=== PATIENT | female | born 1950 | race Caucasian/White ===

== ENCOUNTER 2023-08-14 13:41 | Inpatient (IN) | payer MEDICARE, OTHER, SELFPAY ==
[2023-08-14] VITALS (9 sets, daily range): BP systolic 118–145; BP diastolic 53–78; BMI 27.8; BMI 27.1
--- NOTE | 2023-08-14 10:29 | ED.GENMED ---
History of Present Illness
General
Chief Complaint: Cold/Flu/URI Symptoms
Time Seen by Provider: 08/14/23 10:20
Travel History
Have you had any contact with someone who has COVID-19?: No
Do you have any symptoms of coronavirus? Fever > 100 degrees, chills, cough, shortness of breath, sore throat, loss of taste or smell, muscle aches, or headache?: No
History of Present Illness
History of Present Illness:
HPI: Patient presents due to general unwell feeling including nausea, some vomiting, poor p.o. intake, flu positive yesterday (COVID-negative), general weakness, headache. Of note her is here admitted with flu/pneumonia. She states her
primary put her on Tamiflu but she could not tolerate taking this medication.
EXAM:
GENERAL: The patient appears generally weak
HEENT: Moist oral mucosa
CARDIOVASCULAR: No murmurs, normal heart rate and rhythm, No chest wall tenderness
PULMONARY: No respiratory distress, breath sounds are somewhat coarse
ABDOMEN: Soft with no peritoneal signs, no tenderness
NEUROLOGIC: Excellent strength all extremities, no coordination deficits
PSYCHIATRIC: Appropriate mental status, normal insight and judgement
EXTREMITIES: Nontender, no edema, moves all extremities equally
SKIN: No rash, no lesions
ED COURSE:
10:30 AM: I initially evaluated patient
NUMBER AND COMPLEXITY OF PROBLEMS ADDRESSED AT THE ENCOUNTER
� Chronic conditions affecting care: High blood pressure, former smoker, asthma, melanoma
� Acute Exacerbation and/or Progression of Chronic Illness: This is an acute problem
� Differential Diagnosis includes: Influenza, JUANCHO, dehydration, sepsis unlikely based on vital signs
AMOUNT AND/OR COMPLEXITY OF DATA TO BE REVIEWED AND ANALYZED
� I performed an independent evaluation of and my interpretation is:
EKG:
CT:
X-rays: Personally reviewed x-ray, and agree with radiologist interpretation of the possibly of disease at the [facility]
Laboratory Studies: White count slightly high at 12.4, chemistries relatively unremarkable
Other:
� Review of other/old records: The patient had a normal nuclear stress test in 2021
� Clinical information was obtained by an independent historian: None needed
� Prescriptions/Medications Considered but not given:
� Further testing considered but not performed:
RISK OF COMPLICATIONS AND/OR MORBIDITY OR MORTALITY OF PATIENT MANAGEMENT
� Social determinants of health affecting care: Lives at home, currently hospitalized for similar episode.
� Discussion with other providers: Hospitalist for admission 11:45 AM.
� Escalation of care including admission/observation vs risk of discharge considered: Chest x-ray suggest the possibility of pneumonia and white count is slightly high and she does have a worsening cough. She was given fluid,
Tylenol, Zofran. After neb, room air sat was about 93%. She does not feel comfortable going home and there was some concern for pneumonia. Will give IV antibiotics that she feels that she cannot tolerate p.o.
Past History
Past History
ED Past Medical History: Asthma, Cancer (Skin), HTN and Hypercholesterolemia
ED Past Surgical History: Orthopedic and Other (melanoma removed)
Social History
Tobacco: Non-smoker
Alcohol: Daily
Personal:
Living: with family
Employment: Employed
Phy Exam
Physical Exam
Physical Exam:
See HPI
Course
Orders/Labs/Results
Orders:
Orders
08/14/23 10:28
0.9% Sodium Chloride 1000 ml [Nss] 1,000 ml IV BOLUS
Acetaminophen [Tylenol] 1,000 mg PO NOW STA
Ipratropium/Albuterol Sulfate [Duoneb] 3 ml INH R NOW ONE
Ondansetron Injectable [Zofran] 4 mg IV NOW STA
08/14/23 10:29
CR Chest - 2 Views Urgent
Comment:
Reason For Exam: +flu, -COVID, sob cough
08/14/23 10:45
Complete Blood Count/With Diff Urgent
Comprehensive Metabolic Panel Urgent
08/14/23 11:40
Azithromycin 500 mg/250 ml [Zithromax Infusion] 500 mg in 250 ml IV NOW
CefTRIAXone [Rocephin] 1,000 mg IV NOW STA
Abnormal Lab Results
08/14/23
10:45
WBC 12.4 H 10^3/uL
(4.8-10.8)
MCH 32.0 H pg
(27.0-31.0)
MPV 10.5 H fL
(7.4-10.4)
Abs Immat Gran (auto) 0.1 H 10^3/uL
(0-0.05)
Absolute Neuts (auto) 10.8 H 10^3/uL
(1.4-6.5)
Absolute Lymphs (auto) 0.7 L 10^3/uL
(1.2-3.4)
Absolute Monos (auto) 0.9 H 10^3/uL
(0.1-0.6)
Neutrophils % 87.0 H %
(42.2-75.2)
Lymphocytes % 5.4 L %
(20.5-51.1)
Sodium 134 L mmol/L
(135-145)
Glucose 152 H mg/dl
(70-99)
AST 47 H U/L
(14-36)
ALT 47 H U/L
(0-35)
08/14/23 10:45
08/14/23 10:45
Vital Signs
Initial and Last Documented VS:
Initial Vital Signs
Temp Pulse Resp BP Pulse Ox
97.6 F 98 18 130/74 95
08/14/23 09:36 08/14/23 09:36 08/14/23 09:36 08/14/23 09:36 08/14/23 09:36
Last Documented Vital Signs
Temp Pulse Resp BP Pulse Ox
97.6 F 89 17 118/60 97
08/14/23 09:36 08/14/23 13:00 08/14/23 13:00 08/14/23 13:00 08/14/23 10:33
*Critical Care Note
Total Time (30-74mins, 75-104mins- exclusive of procedures): Not Applicable
ED Attending Note
-
Portions of this chart may have been created with voice recognition software.� Occasional wrong word or��sound alike� substitutions may have occurred due to the inherent limitations of voice recognition software.
Discharge Plan
Departure
Patient Disposition: Admit
Date of Disposition: 08/14/23
Time of Disposition: 12:48
Presentation/result/management discussed w/ accepting MD/DO: Hospitalist
Discharge Problem:
Pneumonia, Influenza
Prescriptions:
No Action
cholecalciferol (vitamin D3) [Vitamin D3] 1,000 UNIT capsule
1,000 unit PO DAILY
duloxetine 60 MG capsule,delayed release(DR/EC)
60 mg PO DAILY
fluticasone propion-salmeterol 250-50 mcg/dose blister with device
1 inh INHALATION R BID
amlodipine 10 mg tablet
10 mg PO DAILY
metoprolol succinate 25 mg tablet extended release 24 hr
25 mg PO DAILY
albuterol sulfate 90 mcg/actuation HFA aerosol inhaler
2 puff INHALATION R Q4 PRN (Reason: sob/wheezing)
rosuvastatin 5 mg tablet
5 mg PO DAILY
Referrals:
Jessica Molina PA [Family Provider] -
Interventions
Interventions:
*Risk Screen - Suicide Last Done: 08/14/23 09:36
*General Assessment Last Done: 08/14/23 09:36
*Neglect/Abuse Screening Last Done: 08/14/23 09:36
ED- Fall Risk Assessment Last Done: 08/14/23 10:33
*ED COVID-19 Vaccine History Last Done: 08/14/23 09:36
ED- Pulmonary Assessment Last Done: 08/14/23 10:33
[2023-08-14] MEDS: NSS 1000 IV ×2 (10:44→15:32)
[2023-08-14] MEDS: DUONEB 3 ML INH (10:44)
[2023-08-14] MEDS: TYLENOL 1000 MG PO (10:44)
[2023-08-14] MEDS: ZOFRAN 4 MG IV (10:44)
[2023-08-14 10:55] LABS: % Basophils 0.2 % (0-2); % Immature Granulocytes 0.5 % (0-0.5); % Lymphocytes 5.4 % (20.5-51.1); % Monocytes 6.9 % (1.7-9.3); Absolute Immature Granulocytes 0.1 10^3/uL (0-0.05); Absolute Lymphocytes 0.7 10^3/uL (1.2-3.4); Absolute Monocytes 0.9 10^3/uL (0.1-0.6); Absolute Neutrophils 10.8 10^3/uL (1.4-6.5); Hematocrit 44.2 % (37.0-47.0); Hemoglobin 15.3 g/dL (12.0-16.0); Mean Corp Hgb Conc. 34.6 g/dL (33.0-37.0); Mean Corpuscular Volume 92.5 fL (81.0-99.0); Mean Platelet Volume 10.5 fL (7.4-10.4); Nucleated Red Blood Cells % 0 %; Platelet Count 187 10^3/uL (130-400); Red Blood Cell Count 4.78 10^6/uL (4.20-5.40); White Blood Cell Count 12.4 10^3/uL (4.8-10.8)
[2023-08-14 11:09] LABS: Carbon Dioxide 27 mmol/L (22-30)
[2023-08-14 11:24] LABS: ALT (SGPT) 47 U/L (0-35); AST (SGOT) 47 U/L (14-36); Albumin 4.3 g/dl (3.5-5.0); Alkaline Phosphatase 77 U/L (38-126); Blood Urea Nitrogen 8 mg/dl (7-17); Calcium 9.2 mg/dl (8.4-10.2); Chloride 98 mmol/L (98-107); Estimated Creatinine Clearance 62 ml/min; Glucose 152 mg/dl (70-99); Potassium 3.6 mmol/L (3.5-5.1); Sodium 134 mmol/L (135-145); Total Bilirubin 1.1 mg/dl (0.2-1.3); Total Protein 6.8 g/dl (6.3-8.2); eGFR > 60.00
[2023-08-14] MEDS: ZITHROMAX INFUSION 250 IV (11:46)
[2023-08-14] MEDS: ROCEPHIN 1000 MG IV (11:46)
--- NOTE | 2023-08-14 13:25 | HPS.HSE ---
Family Physician
-
Family Physician: Jessica Molina
Chief Complaint
-
Cough, fever, nausea and vomiting
History of Present Illness
Patient is 72 years old female with history of asthma, hypertension who developed upper respiratory tract symptoms including congestion, productive cough, subjective shortness of breath, nausea and vomiting for the last 2 days. Patient has been
tested influenza positive COVID-19 negative at primary physician office day prior to visit to ED. She was prescribed Tamiflu. Given persistent symptoms including nausea and vomiting patient could not keep any medications and oral intake. She
presents to the emergency room.
While in the emergency room patient has afebrile, with stable respiratory status with no evidence of distress, hemodynamically stable.
Additional workup revealed mild elevated white count. Chest x-ray with lingular infiltrate.
Medical History
Past Medical History
Past Medical History: Reports Asthma, HTN and Hypercholesterolemia
Past Surgical History: Reports Orthopedic
Social History
Tobacco: Non-smoker
Alcohol: None
Drug: None
Living: With Family
Family History
Family History: Not pertinent
Allergies / Home Medications
Allergies reflects when Allergies were last updated in [facility].
Home Medications with original date entered in [facility]
Allergy/Medication List:
Allergies
Allergy/AdvReac Type Severity Reaction Status Date / Time
seasonal Allergy Unknown Uncoded 08/14/23 09:36
triamcinolone Allergy Unknown Uncoded 08/14/23 09:36
Home Medications
cholecalciferol (vitamin D3) 25 mcg (1,000 unit) capsule (Vitamin D3) 1,000 unit PO DAILY 12/23/17
duloxetine 60 mg capsule,delayed release 60 mg PO DAILY 12/23/17
albuterol sulfate 90 mcg/actuation aerosol inhaler 2 puff inhalation R Q4 PRN sob/wheezing 08/14/23
amlodipine 10 mg tablet 10 mg PO DAILY 08/14/23
fluticasone 250 mcg-salmeterol 50 mcg/dose blistr powdr for inhalation 1 inh inhalation R BID 08/14/23
metoprolol succinate 25 mg tablet,extended release 24 hr 25 mg PO DAILY 08/14/23
rosuvastatin 5 mg tablet 5 mg PO DAILY 08/14/23
Review of Systems
-
A 12 point ROS was completed and negative except as noted: Yes
Respiratory: Reports See HPI
Abdomen/GI: Reports See HPI
Physical Exam
Vital Signs
Vital Signs
Temp Pulse Resp BP Pulse Ox
97.6 F 89 17 118/60 97
08/14/23 09:36 08/14/23 13:00 08/14/23 13:00 08/14/23 13:00 08/14/23 10:33
Physical Exam
General: Well Developed, Well Nourished and No Apparent Distress
HEENT: NormoCephalic, Moist mucous membranes and Atraumatic
Respiratory: Wheezes and Rhonchi
Cardiac: S1/S2 and Regular Rhythm; No Murmur or Rub
GI: Soft, Non Tender, Non Distended and Normal Bowel Sounds; No Organomegaly
Rectal: Deferred by Provider
Musculoskeletal: No Clubbing, No Cyanosis and No Edema
Skin: No Rash
Neuro: Nonfocal/grossly intact
Laboratory Results
-
08/14/23 10:45
08/14/23 10:45
Laboratory Results
Total Bilirubin 1.1 mg/dl (0.2-1.3) 08/14/23 10:45
AST 47 U/L (14-36) H 08/14/23 10:45
ALT 47 U/L (0-35) H 08/14/23 10:45
Alkaline Phosphatase 77 U/L (38-126) 08/14/23 10:45
Impression/Plan
-
IMPRESSION:
Influenza positive
Lingular pneumonia, community-acquired.
Persistent nausea and vomiting inability to keep oral intake.
Conditions prior to admission:
Essential hypertension
Dyslipidemia
Asthma mild intermittent.
PLAN:
Influenza positive
Pneumonia with lingular infiltrate in the settings of flu.
Mild intermittent asthma
Persistent upper respiratory tract symptoms, although stable respiratory status with no evidence of hypoxia.
Persistent nausea and vomiting secondary to above inability to keep oral intake including medications.
Admitted.
Start antibiotics ceftriaxone/Zithromax pending cultures
Tamiflu.
Short acting inhaled bronchodilators
Advair.
Antiemetics
IV hydration
Essential hypertension
Continue amlodipine and Toprol.
Dyslipidemia on statin.
Full code
DVT prophylaxis heparin
[2023-08-14] MEDS: COMPAZINE 5 MG IV (16:04)
[2023-08-14] MEDS: TOPROL XL 25 MG PO (17:35)
[2023-08-14] MEDS: NORVASC 10 MG PO (17:35)
--- NOTE | 2023-08-14 18:14 | PTCARENOTE ---
Pt admitted to room 327. AAO x 3, able to make needs known, denies pain and discomfort and SOB. VSS. Pt c/o nausea, PRN Compazine given with relief. During alcohol screening, pt's answer prompted ETOH protocol, Dr. Carroll notified, awaiting
orders. MSAS initiated.
[2023-08-14] MEDS: ADVAIR HFA 115/21 MCG INHALER 2 PUFF INH (20:18)
[2023-08-14] MEDS: TAMIFLU 75 MG PO (20:41)
[2023-08-14] MEDS: MUCINEX 600 MG PO (20:41)
[2023-08-14] MEDS: HEPARIN 5000 UNITS SC (20:41)
[2023-08-15] MEDS: NSS 1000 IV (01:15)
[2023-08-15] MEDS: DUONEB 3 ML INH ×5 (04:40→20:08)
[2023-08-15 06:00] VITALS: BMI 27.2
[2023-08-15] MEDS: CRESTOR 5 MG PO (08:04)
[2023-08-15] MEDS: CYMBALTA DELAYED RELEASE 60 MG PO (08:04)
[2023-08-15] MEDS: MUCINEX 600 MG PO ×2 (08:04→19:59)
[2023-08-15] MEDS: VITAMIN D3 (cholecalciferol) 25 MCG PO (08:04)
[2023-08-15] MEDS: TAMIFLU 75 MG PO ×2 (08:04→19:59)
[2023-08-15] MEDS: NORVASC 10 MG PO (08:04)
[2023-08-15] MEDS: TOPROL XL 25 MG PO (08:04)
[2023-08-15] MEDS: HEPARIN 5000 UNITS SC ×2 (08:05→19:58)
[2023-08-15] MEDS: ADVAIR HFA 115/21 MCG INHALER 2 PUFF INH ×2 (08:09→20:08)
[2023-08-15 08:21] VITALS: BP 140/72
[2023-08-15 08:50] LABS: Hematocrit 38.7 % (37.0-47.0); Hemoglobin 13.4 g/dL (12.0-16.0); Mean Corp Hgb Conc. 34.6 g/dL (33.0-37.0); Mean Corpuscular Volume 92.4 fL (81.0-99.0); Red Blood Cell Count 4.19 10^6/uL (4.20-5.40); Red Cell Dist. Width 12.3 % (11.5-14.5); White Blood Cell Count 10.4 10^3/uL (4.8-10.8)
[2023-08-15 08:58] LABS: Blood Urea Nitrogen 7 mg/dl (7-17); Calcium 8.4 mg/dl (8.4-10.2); Carbon Dioxide 24 mmol/L (22-30); Chloride 107 mmol/L (98-107); Estimated Creatinine Clearance 70 ml/min; Glucose 98 mg/dl (70-99); Potassium 3.3 mmol/L (3.5-5.1); Sodium 139 mmol/L (135-145); eGFR > 60.00
[2023-08-15] MEDS: ROCEPHIN 1000 MG IV (09:10)
[2023-08-15] MEDS: STERILE WATER FOR INJECTION 10 ML IV (09:10)
--- NOTE | 2023-08-15 10:07 | W.PN.HOSP.TC ---
Today's Communication/Plan
-
see outlined plan
Assessment / Plan
Assessment / Plan
Assessment:
Influenza infection
Community acquire lingular PNA superinfection
Hx of intermittent asthma
- continue Rocephin, Azithro day 2
- continue Tamiflu
- add PO prednisone
- scheduled/prn nebs
N/V from acute illness
- improving, prn anti-emetics
- cap IVF after current bag
Essential HTN
- continue BB/CCB
HLD - statin
HX of ETOH use - 3-4 drinks daily
- MSAS protocol added
DVT Ppx: SC Heparin
Code: Full
Anticipated Discharge: 24 - 48 hours
Subjective/Interval History
-
Date of Service: August 15, 2023
reports SOB with some wheezing which is causing chest discomfort but no specific pain,
remains on RA
Objective Data
-
Labs:
Laboratory Results
08/15/23
08:38
WBC 10.4
Hgb 13.4
Hct 38.7
Plt Count Pending
Sodium 139
Potassium 3.3 L
Chloride 107
Carbon Dioxide 24
BUN 7
Creatinine 0.7
Glucose 98
Calcium 8.4
Vital Signs:
Vital Signs
Temp Pulse Resp BP Pulse Ox
98.5 F 88 22 140/72 93
08/15/23 08:21 08/15/23 08:21 08/15/23 08:21 08/15/23 08:21 08/15/23 08:21
I&O
08/14/23 08/15/23 08/16/23
06:59 06:59 06:59
Intake Total 1919
Balance 1919
Physical Exam
-
General: No Apparent Distress
HEENT: Normocephalic and Atraumatic
Respiratory: Wheezes (mild); Negative Rales or Rhonchi
Cardiac: Regular Rhythm and S1/S2
GI: Soft
Musculoskeletal: No Edema
Neuro: AO x 3
Hematologic / Lymphatic: No Lymphadenopathy
Psych: Calm
Data Reviewed
-
Total Time Spent with Patient (in minutes): 42
Labs: Labs Reviewed by me
[2023-08-15 10:21] LABS: Mean Platelet Volume 10.7 fL (7.4-10.4); Platelet Count 147 10^3/uL (130-400)
[2023-08-15 11:13] VITALS: BP 137/50; PULSE 87; O2SAT 95
[2023-08-15] MEDS: THIAMINE INJECTION 200 MG IV ×2 (11:49→21:45)
[2023-08-15] MEDS: KCL 40 MEQ PO (11:49)
[2023-08-15] MEDS: DELTASONE 40 MG PO (11:49)
[2023-08-15] MEDS: ZITHROMAX INFUSION 250 IV (11:50)
[2023-08-15] MEDS: COMPAZINE 5 MG IV (12:05)
[2023-08-15 14:51] VITALS: BP 136/70
[2023-08-15] MEDS: THIAMINE INJECTION IV (20:16)
[2023-08-15] MEDS: TYLENOL 650 MG PO (20:33)
[2023-08-15 23:25] VITALS: BP 142/70
[2023-08-15] MEDS: ATIVAN 1 MG PO (23:33)
[2023-08-16 07:25] VITALS: BP 146/75
[2023-08-16 07:50] LABS: Hematocrit 38.3 % (37.0-47.0); Hemoglobin 13.5 g/dL (12.0-16.0); Mean Corp Hgb Conc. 35.2 g/dL (33.0-37.0); Mean Corpuscular Hgb 31.8 pg (27.0-31.0); Mean Corpuscular Volume 90.1 fL (81.0-99.0); Mean Platelet Volume 10.8 fL (7.4-10.4); Platelet Count 156 10^3/uL (130-400); Red Blood Cell Count 4.25 10^6/uL (4.20-5.40); Red Cell Dist. Width 11.9 % (11.5-14.5); White Blood Cell Count 7.5 10^3/uL (4.8-10.8)
[2023-08-16] MEDS: DUONEB 3 ML INH ×2 (07:54→19:59)
[2023-08-16] MEDS: ADVAIR HFA 115/21 MCG INHALER 2 PUFF INH ×2 (07:54→19:53)
[2023-08-16] MEDS: CRESTOR 5 MG PO (08:14)
[2023-08-16] MEDS: CYMBALTA DELAYED RELEASE 60 MG PO (08:14)
[2023-08-16] MEDS: VITAMIN D3 (cholecalciferol) 25 MCG PO (08:14)
[2023-08-16] MEDS: FOLVITE 1 MG PO (08:14)
[2023-08-16] MEDS: TAMIFLU 75 MG PO ×2 (08:14→22:21)
[2023-08-16] MEDS: DELTASONE 40 MG PO (08:14)
[2023-08-16] MEDS: TOPROL XL 25 MG PO (08:14)
[2023-08-16] MEDS: NORVASC 10 MG PO (08:14)
[2023-08-16] MEDS: MUCINEX 600 MG PO ×2 (08:14→22:21)
[2023-08-16] MEDS: HEPARIN 5000 UNITS SC ×2 (08:15→22:20)
[2023-08-16] MEDS: THIAMINE INJECTION 200 MG IV ×2 (08:16→22:25)
[2023-08-16 08:33] LABS: ALT (SGPT) 27 U/L (0-35); AST (SGOT) 21 U/L (14-36); Albumin 3.4 g/dl (3.5-5.0); Alkaline Phosphatase 67 U/L (38-126); Blood Urea Nitrogen 8 mg/dl (7-17); Calcium 9.5 mg/dl (8.4-10.2); Carbon Dioxide 25 mmol/L (22-30); Chloride 105 mmol/L (98-107); Estimated Creatinine Clearance 82 ml/min; Glucose 114 mg/dl (70-99); Magnesium 2.1 mg/dl (1.6-2.3); Phosphorus 3.2 mg/dl (2.5-4.5); Potassium 3.5 mmol/L (3.5-5.1); Sodium 140 mmol/L (135-145); Total Bilirubin 0.6 mg/dl (0.2-1.3); Total Protein 5.8 g/dl (6.3-8.2); eGFR > 60.00
[2023-08-16] MEDS: STERILE WATER FOR INJECTION 10 ML IV (09:06)
[2023-08-16] MEDS: ROCEPHIN 1000 MG IV (09:06)
[2023-08-16 11:46] VITALS: BP 154/78; BP 157/90; PULSE 103; PULSE 112; O2SAT 95
[2023-08-16] MEDS: ZITHROMAX INFUSION 250 IV (11:46)
--- NOTE | 2023-08-16 12:07 | W.PN.HOSP.TC ---
Today's Communication/Plan
-
continue current tx, make nebs prn only
probiotic
psych eval
continue MSAS protocol
Assessment / Plan
Assessment / Plan
Assessment:
Influenza infection
Community acquire lingular PNA superinfection
Hx of intermittent asthma
- continue Rocephin, Azithro day 3/
- continue Tamiflu, day 3/5
- continue PO prednisone, day 2/5
- prn nebs (DC scheduled)
N/V from acute illness
- improving, prn anti-emetics
- add probiotic for loose stools associated with Abx
ETOH abuse (4-5 shots a day) with active WD
- MSAS protocol
- she reports her drinking stems for recent life trauma/stressors including of daughter from OD 4 years ago
- agreeable to psych eval; consulted placed
Essential HTN
- continue BB/CCB
HLD - statin
DVT Ppx: SC Heparin
Code: Full
Anticipated Discharge: 24 - 48 hours
Subjective/Interval History
-
Date of Service: August 16, 2023
overnight scored higher on MSAS so given IV ativan
this AM, reports breathing improved, SOB improved
some loose stools she feels from Abx
Objective Data
-
Labs:
Laboratory Results
08/16/23
07:27
WBC 7.5
Hgb 13.5
Hct 38.3
Plt Count 156
Sodium 140
Potassium 3.5
Chloride 105
Carbon Dioxide 25
BUN 8
Creatinine 0.5 L
Glucose 114 H
Calcium 9.5
Total Bilirubin 0.6
AST 21
ALT 27
Alkaline Phosphatase 67
Vital Signs:
Vital Signs
Temp Pulse Resp BP Pulse Ox
97.9 F 71 16 146/75 99
08/16/23 07:25 08/16/23 07:58 08/16/23 07:58 08/16/23 07:25 08/16/23 07:58
I&O
08/15/23 08/16/23 08/17/23
06:59 06:59 06:59
Intake Total 1919 980 / 980
Balance 1919 980 / 980
Physical Exam
-
General: No Apparent Distress
HEENT: Normocephalic and Atraumatic
Respiratory: Negative Wheezes or Rales
Cardiac: Regular Rhythm and S1/S2
GI: Soft
Neuro: AO x 3
Psych: Calm
Data Reviewed
-
Total Time Spent with Patient (in minutes): 45
Labs: Labs Reviewed by me
[2023-08-16 12:14] VITALS: BMI 27.2
[2023-08-16] MEDS: VISBIOME 1 CAP PO (12:43)
[2023-08-16] MEDS: COMPAZINE 5 MG IV ×2 (12:43→22:26)
--- NOTE | 2023-08-16 15:03 | CON.MD ---
Consultation - Medical
-
Called to see this 79 yr old white female who was admitted her for flu/pneumonia. She requested to talk to a psychiatrist because 'I've been drinking too much' and 'I don't have any energy or motivation.' She says that her alcohol
consumption gradually increased over the last 4 years. Her current intake is 5 vodka/tonics a night. 'I shut myself in my bedroom and I start watching my shows and drinking.' She denies blackouts, headaches, falling down. She does c/o more and
more difficulty reading or focusing on things during the day. For example she works as an school health assistant at a school, and realizes she doesn't pay attention very well to what is going on with the students. She thinks that it might be ADHD,
but when I pointed out the likely correlation of her cognitive change with her alcohol intake she seemed to agree. She says her goal is to stop drinking alcohol completely.
She does not feel depressed, says she often feels anxious. She readily admits she is unhappy with her life right now. 'My is retired and all he does it sit around and do nothing, while I want to go out and travel.' Right now her
is in [facility] too for a cardiac procedure.
No change in her appetite or sleep.
For years she has been maintained on Cymbalta 60 mg. Says that first she was put on Prozac but it didn't help.
MSE- Alert white female, sleeping when I entered the room but woke up quickly. Cooperative and pleasant.
No suicidal ideation, no thoughts of harming others. No psychotic symptoms. Memory grossly intact.
Insight and judgment good.
A/P- Alcohol dependence; on MSAS protocol for withdrawal
Influenza
Depression by hx- on Cymbalta
Pt motivated to start psychotherapy and Alcohol support group after discharge.
She is interested in [facility] as her granddaughter goes there for psychiatric services.
We will follow with you.
[2023-08-16 15:10] VITALS: BP 152/83
--- NOTE | 2023-08-16 16:07 | CM ---
clinical statistics manager reviewed patient's chart and spoke with patient by phone, patient is on isolation. Patient lives with spouse in a 1 story home, with 13 steps to enter, patient independent with adl's and ambulation, no dme, patient has a prescription
plan and patient uses [facility]. Patient is agreeable to psychotherapy at [facility] outpatient.
Plan; To follow up with appointment for patient at [facility] or[facility]and [facility]
PCP: Jessica Molina
[2023-08-16 19:50] VITALS: BP 147/74
[2023-08-16 23:15] VITALS: BP 162/83
[2023-08-17] MEDS: ATIVAN 0.5 MG IV (00:36)
[2023-08-17] MEDS: NSS (PRESERVATIVE FREE) 0.25 ML IV (00:46)
[2023-08-17 05:28] VITALS: BMI 26.8
[2023-08-17 06:09] LABS: Mean Corp Hgb Conc. 36.1 g/dL (33.0-37.0); Mean Corpuscular Hgb 32.2 pg (27.0-31.0); Mean Corpuscular Volume 89.1 fL (81.0-99.0); Mean Platelet Volume 10.8 fL (7.4-10.4); Platelet Count 192 10^3/uL (130-400); Red Blood Cell Count 4.04 10^6/uL (4.20-5.40); Red Cell Dist. Width 11.7 % (11.5-14.5); White Blood Cell Count 8.2 10^3/uL (4.8-10.8)
[2023-08-17 06:32] LABS: ALT (SGPT) 25 U/L (0-35); AST (SGOT) 21 U/L (14-36); Albumin 3.4 g/dl (3.5-5.0); Alkaline Phosphatase 64 U/L (38-126); Blood Urea Nitrogen 14 mg/dl (7-17); Calcium 9.5 mg/dl (8.4-10.2); Carbon Dioxide 23 mmol/L (22-30); Chloride 104 mmol/L (98-107); Estimated Creatinine Clearance 81 ml/min; Glucose 101 mg/dl (70-99); Potassium 3.5 mmol/L (3.5-5.1); Sodium 138 mmol/L (135-145); Total Bilirubin 0.7 mg/dl (0.2-1.3); Total Protein 5.9 g/dl (6.3-8.2); eGFR > 60.00
[2023-08-17 07:00] VITALS: BP 153/74
[2023-08-17] MEDS: THIAMINE INJECTION 200 MG IV (08:21)
[2023-08-17] MEDS: HEPARIN 5000 UNITS SC (08:22)
[2023-08-17] MEDS: MUCINEX 600 MG PO (08:23)
[2023-08-17] MEDS: CYMBALTA DELAYED RELEASE 60 MG PO (08:24)
[2023-08-17] MEDS: VITAMIN D3 (cholecalciferol) 25 MCG PO (08:24)
[2023-08-17] MEDS: NORVASC 10 MG PO (08:24)
[2023-08-17] MEDS: TAMIFLU 75 MG PO (08:24)
[2023-08-17] MEDS: VISBIOME 1 CAP PO (08:24)
[2023-08-17] MEDS: CRESTOR 5 MG PO (08:24)
[2023-08-17] MEDS: DELTASONE 40 MG PO (08:24)
[2023-08-17] MEDS: FOLVITE 1 MG PO (08:25)
[2023-08-17] MEDS: TOPROL XL 25 MG PO (08:29)
[2023-08-17] MEDS: DUONEB 3 ML INH (08:44)
[2023-08-17] MEDS: ADVAIR HFA 115/21 MCG INHALER 2 PUFF INH (08:44)
--- NOTE | 2023-08-17 09:43 | W.PN.HOSP.TC ---
Addendum entered and electronically signed by Bobby Carroll MD 08/17/23 17:17:
Patient seen and examined
Discussed with resident
Impression/plan:
Influenza.
Possible small lingular pneumonia with no evidence of sepsis.
Persistent nausea and vomiting with poor oral intake upon admission.
Respiratory status stable with improved upper respiratory symptoms. Does not require oxygen supplementation.
Complete course of Tamiflu.
Complete course of oral antibiotics narrowing to Zithromax.
Rapid prednisone taper as outpatient
Alcohol use disorder
No evidence of withdrawal with low MSAS score.
Patient will follow with outpatient alcohol cessation services.
Original Note:
Today's Communication/Plan
-
continue current with Rocephin, Azithro day 4/5, Tamiflu day 4/5,PO prednisone, day 3/5.
probiotic
psych eval
continue MSAS protocol
Plan for discharge
Assessment / Plan
Assessment / Plan
Assessment:
Influenza infection
Community acquire lingular PNA superinfection
Hx of intermittent asthma
Plan
- continue Rocephin, Azithro day 4/5
- continue Tamiflu, day 4/5
- continue PO prednisone, day 3/5
- prn nebs (DC scheduled)
-Discharge planning
N/V from acute illness
- improving, prn anti-emetics
- add probiotic for loose stools associated with Abx
ETOH abuse (4-5 shots a day) with active WD
- MSAS protocol
- she reports her drinking stems for recent life trauma/stressors including of daughter from OD 4 years ago
- agreeable to psych eval; consulted placed
-Psych evaluation appreciated
-Patient motivated to start psychotherapy and alcohol support group post discharge
-Follow psych outpatient
Essential HTN
- continue BB/CCB
HLD - statin
DVT Ppx: SC Heparin
Code: Full
Anticipated Discharge: Today
Subjective/Interval History
-
Date of Service: August 17, 2023
Patient is 72 years old female with history of asthma, hypertension who presented to ED 3 days ago with upper respiratory tract symptoms including congestion, productive cough, subjective shortness of breath, nausea and vomiting. She tested
positive for influenza but negative for COVID-19 prior to the visit. She was prescribed Tamiflu. However, patient could not keep down oral medications due to constant vomiting and therefore presented to the ED. Additional workup in the ED reviewed
elevated white count and checks x-ray with lingular infiltrate. Patient denies fever, chills, shortness of breath, chest pain, palpitations, dizziness, abdominal pain. Patient stated that she is ready to start outpatient psychotherapy and alcohol
support group.
Objective Data
-
Labs:
Laboratory Results
08/17/23
05:49
WBC 8.2
Hgb 13.0
Hct 36.0 L
Plt Count 192 D
Sodium 138
Potassium 3.5
Chloride 104
Carbon Dioxide 23
BUN 14
Creatinine 0.6
Glucose 101 H
Calcium 9.5
Total Bilirubin 0.7
AST 21
ALT 25
Alkaline Phosphatase 64
Vital Signs:
Vital Signs
Temp Pulse Resp BP Pulse Ox
97.8 F 73 16 153/74 97
08/17/23 07:00 08/17/23 08:50 08/17/23 08:50 08/17/23 07:00 08/17/23 08:50
I&O
08/16/23 08/17/23 08/18/23
06:59 06:59 06:59
Intake Total 980 / 980 840 / 840
Balance 980 / 980 840 / 840
Physical Exam
-
General: Well Developed, Well Nourished and No Apparent Distress
HEENT: Normocephalic and Atraumatic
Respiratory: Clear to Auscultation; Negative Wheezes or Rales
Cardiac: Regular Rhythm and S1/S2
GI: Soft
Genito-urinary: No Costovertebral Tender
Musculoskeletal: No Clubbing and No Cyanosis
Skin: Warm and Dry
Neuro: Awake, Alert, Oriented and AO x 3
Psych: Calm
Data Reviewed
-
Diagnostic Radiology: Image personally visualized and interpreted, Report Reviewed by me and Discussed with Physician
Labs: Labs Reviewed by me and Discussed with Physician
Old Records: Reviewed
[2023-08-17] MEDS: ROCEPHIN 1000 MG IV (10:24)
[2023-08-17] MEDS: STERILE WATER FOR INJECTION 10 ML IV (10:24)
--- NOTE | 2023-08-17 12:19 | W.PN.UPDATE ---
Update Note
Progress Note Update
Pt seen, alert, oriented, sitting up in bed, with good eye contact, answering questions. Pt states she has been having 5 drinks of alcohol per night. She c/o feeling 'in a rut,' though she denies severe depression. She c/o difficulty focusing,
making it difficult to read. Pt is prescribed Cymbalta 60 mg daily by her PCP. Pt denies any SI. She declines residential/inpatient alcohol rehab; states she needs a 'change of lifestyle.' Pt c/o feeling restless at night, attributed to steroid.
Pt on MSAS, has only received one dose of Ativan 1 mg since admission.
Imp: Alcohol abuse
Unspecified depression, mild
Rec: continue on MSAS, refer to treatment/counseling for alcohol use
continue Cymbalta 60 mg daily. Pt appears psych stable to return to f/u with PCP when medically cleared
will follow peripherally
[2023-08-17] MEDS: ZITHROMAX INFUSION 250 IV (12:55)
--- NOTE | 2023-08-17 14:43 | W.DS.TRANS ---
DC Summary - Tube Backer
-
Discharge Instructions:
Discharge Diagnosis/Procedures Flu
Pneumonia
Diet Regular
Instructions:
Stand-Alone Forms:
Changes to Home Medications: No
Discharge Medications:
DC Medications w/original date entered in [facility]
cholecalciferol (vitamin D3) 25 mcg (1,000 unit) capsule (Vitamin D3) 1,000 unit PO DAILY 12/23/17
duloxetine 60 mg capsule,delayed release 60 mg PO DAILY 12/23/17
albuterol sulfate 90 mcg/actuation aerosol inhaler 2 puff inhalation R Q4 PRN sob/wheezing 08/14/23
amlodipine 10 mg tablet 10 mg PO DAILY 08/14/23
fluticasone 250 mcg-salmeterol 50 mcg/dose blistr powdr for inhalation 1 inh inhalation R BID 08/14/23
metoprolol succinate 25 mg tablet,extended release 24 hr 25 mg PO DAILY 08/14/23
rosuvastatin 5 mg tablet 5 mg PO DAILY 08/14/23
azithromycin 500 mg tablet (Zithromax) 500 mg PO DAILY 2 days #2 tabs 08/17/23
guaifenesin 600 mg tablet, extended release 12 hr 600 mg PO Q12 #20 tabs 08/17/23
oseltamivir 75 mg capsule 75 mg PO BID #2 caps 08/17/23
prednisone 10 mg tablet 10 mg PO DIRECTED #10 tabs 08/17/23
Home Medication Changes
Pending Results: No
--- NOTE | 2023-08-17 15:20 | CM ---
Chart reviewed, spoke with pt
Pt for discharge
Discussed IMM
Given phone number to [facility] [phone]
Given phone number to [facility] [phone]
Pt reported she will call - receptive to information given
Plan - D/C to home - given resources to follow up as out patient
--- NOTE | 2023-08-17 17:09 | W.DCSUMMARY ---
Discharge Summary
Discharge Data
Date of Admission: 08/14/23
Date of Discharge: 08/17/23
-
Pending Results: No
Hospital Course
Patient is a 72-year-old female who presented to the ED 3 days ago with upper respiratory tract symptoms, poor oral intake, general weakness, headache, shortness of breath, nausea and vomiting. She tested positive for influenza but negative for
COVID-19 and was prescribed oral Tamiflu which she could not tolerate due to recurrent emesis. Additional workup in the ED was consistent with high WBC count and lingula infiltrate on chest x-ray consistent with possible community-acquired
pneumonia. Patient was admitted for observation and was treated with, IV fluid, IV Rocephin, Zofran, Zithromax infusion and prednisone taper. She was evaluated in consultation with psychiatry due to alcohol abuse with current intake of 5
vodka/tonics nightly. Patient denies chest pain, shortness of breath, and abdominal pain. She declines inpatient alcohol rehab. Patient is on MSDS protocol with low scores and is stable from psychiatric point of view. Her respiratory status is
stable with significantly improved upper respiratory symptoms. Patient will complete Tamiflu and antibiotic regimen with therapy prednisone taper as outpatient.
Discharge Plan
-
Patient Disposition: Home (Routine Discharge)
Discharge Diagnosis/Procedures: Flu
Pneumonia
Condition: Good
Diet: Regular
Activity: No restrictions
Driving Restrictions: As prior to admission
Bathing Restrictions: None
Referrals:
Jessica Molina PA [Family Provider] - in less than 1 week
Prescriptions:
New
guaifenesin 600 mg Tablet Extended Release 12hr
600 mg PO Q12 Qty: 20 0RF
oseltamivir 75 mg Capsule
75 mg PO BID Qty: 2 0RF
azithromycin [Zithromax] 500 mg tablet
500 mg PO DAILY 2 Days Qty: 2 0RF
prednisone 10 mg tablet
10 mg PO DIRECTED Qty: 10 0RF
Rx Instructions:
40mg 1 day
30mg 1 day
20mg 1 day
10mg 1 day
Continued
cholecalciferol (vitamin D3) [Vitamin D3] 1,000 UNIT capsule
1,000 unit PO DAILY
duloxetine 60 MG capsule,delayed release(DR/EC)
60 mg PO DAILY
fluticasone propion-salmeterol 250-50 mcg/dose blister with device
1 inh INHALATION R BID
amlodipine 10 mg tablet
10 mg PO DAILY
metoprolol succinate 25 mg tablet extended release 24 hr
25 mg PO DAILY
albuterol sulfate 90 mcg/actuation HFA aerosol inhaler
2 puff INHALATION R Q4 PRN (Reason: sob/wheezing)
rosuvastatin 5 mg tablet
5 mg PO DAILY
Discharge Orders:
Discharge Patient (As Directed); Ordered 08/17/23
Ordered By: Bobby Carroll
Discharge Date and Time
Discharge Date/Time: 08/17/23 15:48
== END 2023-08-17 15:48 | disposition home or self-care (01) | DRG 194 ==
LOC: 3 WEST ACU 13:41
PROVIDERS: Internal Medicine; ADMITTING PHYSICIAN Internal Medicine; CONSULT PHYSICIAN Psychiatry & Neurology Psychiatry; EMERGENCY PHYSICIAN Emergency Medicine; FAMILY PHYSICIAN Physician Assistant Medical
DX: J18.9 Pneumonia, unspecified organism (principal); F10.939 Alcohol use, unspecified with withdrawal, unspecified; J11.00 Influenza due to unidentified influenza virus with unspecified type of pneumonia; I10 Essential (primary) hypertension; E78.00 Pure hypercholesterolemia, unspecified; J45.20 Mild intermittent asthma, uncomplicated; E78.5 Hyperlipidemia, unspecified; F10.10 Alcohol abuse, uncomplicated; F32.A Depression, unspecified
CPT/HCPCS: 71046; 80048; 80053; 83735; 84100; 85025; 85027; 94640; 96361; 96365; 96366; 96375; 97162; 97166; 99285

== ENCOUNTER → 2023-10-15 18:00 | Outpatient (REF) | payer MEDICARE, OTHER, SELFPAY | LOC: WDC 18:00 | PROVIDERS: ATTENDING PHYSICIAN Physician Assistant Medical | DX: Z12.31 Encounter for screening mammogram for malignant neoplasm of breast (principal) | CPT/HCPCS: 77063; 77067 ==

== ENCOUNTER 2023-11-14 09:28 | Emergency (ER) | payer MEDICARE, OTHER, SELFPAY ==
[2023-11-14] VITALS (9 sets, daily range): BP systolic 140–191; BP diastolic 58–85; BMI 27.4
--- NOTE | 2023-11-14 10:12 | ED.GENMED ---
History of Present Illness
General
Chief Complaint: Abnormal Lab Value
Source: patient
Exam Limitations: none
Time Seen by Provider: 11/14/23 09:52
Nursing documentation reviewed up to this point in time: agreed with
Travel History
Have you had any contact with someone who has COVID-19?: No
Do you have any symptoms of coronavirus? Fever > 100 degrees, chills, cough, shortness of breath, sore throat, loss of taste or smell, muscle aches, or headache?: No
History of Present Illness
History of Present Illness:
The patient is a 72-year-old female who comes in with complaints of diffuse body aches in arms, legs, back and neck for 6 days. Patient also reports subjective fever and chills. Patient reports that along with the body aches and chills, she is
also had frequent episodes of nausea and vomiting and cannot keep anything down. She denies chest pain abdominal pain. She reports she has not yet taken her temperature with a thermometer. She reports that she lives with children so is exposed to
viral illnesses and also works in a school. She denies specific headache and sore throat. She denies cough. Patient arrives tremorous and attributes this to constant chills. Patient asked if she takes benzos regularly and she adamantly denies.
She denies heavy alcohol use and states she last drank alcohol a week ago. She reports that she took Tamiflu at 445 this morning but has not yet taken anything else today.
Past History
Past History
ED Past Medical History: Asthma, Cancer (Skin), HTN and Hypercholesterolemia
ED Past Surgical History: Orthopedic and Other (melanoma removed)
Social History
Tobacco: Former smoker
Alcohol: Daily
Drug: None
Personal:
Living: with family
Employment: Employed
Family History
Family History: Other
Review of Systems
Review of Systems
Allergies reviewed?: Yes
All Other Systems: ROS reviewed and negative except as documented in HPI and ROS
Constitutional: Reports fever, fatigue, night sweats and chills
EENT: Reports no symptoms
Respiratory: Reports no symptoms
Cardiac: Reports no symptoms
ABD/GI: Reports nausea, vomiting and anorexia; Denies abdominal pain, diarrhea, constipated, bloody stools or black stools
: Reports no symptoms
Musculoskeletal: Reports muscle pain and back pain
Skin: Reports no symptoms
Neurological: Reports no symptoms
Endocrine: Reports no symptoms
Hematologic/Lymphatic: Reports no symptoms
Psychiatric: Reports no symptoms
Phy Exam
Physical Exam
Physical Exam:
Physical Exam
General: Patient is tremorous but is nontoxic, conversational and smiling
Neck: supple. no meningeal signs. normal psoterior pharynx
Heart: Tachycardic
Lungs: no acute respiratory distress. clear bilaterally
Abdomen: normal bowel sounds. not tender. no CVAT. Soft and nontender throughout
Neuro: alert and oriented. no focal neurological deficits
Skin: no rash
Psychiatric: well kept. interactive and cooperative
Extremities: no edema. no calf tenderness. negative homans. good distal pulses
Course
Orders/Labs/Results
Orders:
Orders
11/14/23 10:02
Electrocardiogram (*1) Urgent
Reason for Study: Abdominal Pain
EKG- Treatment ONCE
11/14/23 10:14
0.9% Sodium Chloride 1000 ml [Nss] 1,000 ml IV BOLUS
Ondansetron Injectable [Zofran] 4 mg IV NOW STA
11/14/23 10:25
Add On- LAB Urgent
Tests Added?: monotest
11/14/23 10:26
COVID-19 Antigen Urgent
Source: Nasal Swab
Complete Blood Count/With Diff Urgent
Monotest Urgent
Comment: MONO ADDED ON BY FLOOR 10:30AM 11-14-23
Influenza A+B Rapid Molecular Urgent
DELILAH Source: Nasal Swab
Specimen Description:
11/14/23 11:09
Alcohol Urgent
Comprehensive Metabolic Panel Urgent
Lipase Urgent
11/14/23 12:03
0.9% Sodium Chloride 1000 ml [Nss] 1,000 ml IV BOLUS
11/14/23 12:04
Ketorolac [Toradol] 30 mg IV NOW STA
11/14/23 13:50
Urinalysis Reflex To Culture Urgent
Date Specimen was Collected: 11/14/23
Time Specimen was Collected: 13:48
Urine Microscopic Reflex Cult Urgent
Urine Culture Urgent
DELILAH Source: U
Specimen Description:
Date Specimen was Collected: 11/14/23
Time Specimen was Collected: 13:48
11/14/23 14:41
Acetaminophen [Tylenol] 1,000 mg PO NOW STA
Abnormal Lab Results
11/14/23 11/14/23 11/14/23
10:26 11:09 13:50
Hgb 16.6 H g/dL
(12.0-16.0)
Hct 47.6 H %
(37.0-47.0)
MCH 31.6 H pg
(27.0-31.0)
MPV 11.4 H fL
(7.4-10.4)
Absolute Lymphs (auto) 0.7 L 10^3/uL
(1.2-3.4)
Neutrophils % 81.3 H %
(42.2-75.2)
Lymphocytes % 12.5 L %
(20.5-51.1)
Glucose 111 H mg/dl
(70-99)
AST 70 H U/L
(14-36)
ALT 95 H U/L
(0-35)
Total Protein 6.0 L g/dl
(6.3-8.2)
Lipase 21 L U/L
(23-300)
Urine Ketones 3+ A
(Negative)
Ur Occult Blood Reflex 2+ A
(Negative)
Leukocyte Esterase Rfl 2+ A
(Negative)
Urine RBC 7-10 A /HPF
(0-2)
Urine Bacteria (Reflex) Few A
(Negative)
11/14/23 10:26
11/14/23 11:09
Vital Signs
Initial and Last Documented VS:
Initial Vital Signs
Temp Pulse Resp BP Pulse Ox
97.8 F 114 20 148/82 100
11/14/23 09:29 11/14/23 09:29 11/14/23 09:29 11/14/23 09:29 11/14/23 09:29
Last Documented Vital Signs
Temp Pulse Resp BP Pulse Ox
97.8 F 96 19 140/73 97
11/14/23 09:29 11/14/23 14:15 11/14/23 14:15 11/14/23 14:00 11/14/23 14:15
MDM/Problems Addressed
Differential Diagnosis Includes:
Viral syndrome, gastritis, partial bowel obstruction, acute pancreatitis
MDM/Problems Addressed:
Patient presents with acute body aches, nausea and vomiting
Chronic conditions affecting care: HTN
Acute Exacerbation and/or Progression of Chronic Illness: HTN
*Radiology
Radiology exam reviewed: preliminary read by ED provider
*Pulse Oximetry
Patient hypoxic: no
*EKG
Interpreted by ED Provider?: Yes
Interpretation: abnormal
Comparison EKG: changes noted (Now tachycardic)
Rate: tachycardiac
Rhythm: sinus
[place]: normal axis
Interval: normal interval
QRS Pattern: normal QRS
Ischemia: no ischemia
*Refrigeration Lead Interpretation
Rate: tachycardiac
Interpretation: abnormal
Rhythm: sinus
*Critical Care Note
Total Time (30-74mins, 75-104mins- exclusive of procedures): Not Applicable
Data Reviewed
Review of Other/Old Records Reveals: Discharge Summary (Hospitalist discharge summary reviewed from 07/2023 when patient was admitted for influenza, nausea, dehydration and found to also have alcohol use)
Source: patient
Patient Management
Social determinants of health affecting care: Living situation and Strong social support
Escalation/DeEscalation of care consider admission/obs:
4:40 PM patient feels so much better. She reports her nausea and body aches are significantly better. She is smiling, conversational and nontoxic looking. Abdomen remains soft and nontender therefore she does not seem to have acute
diverticulitis, acute appendicitis or acute cholecystitis. Patient may have a viral illness. Heart rate in the 80s.
ED Attending Note
-
Portions of this chart may have been created with voice recognition software.� Occasional wrong word or��sound alike� substitutions may have occurred due to the inherent limitations of voice recognition software.
Discharge Plan
Departure
Patient Disposition: Home (Routine Discharge)
Date of Disposition: 11/14/23
Time of Disposition: 16:40
Patient with high blood pressure during this ER visit?: Yes
Condition: Good
Covid-19: Not Applicable
Discharge Problem:
Acute nausea with nonbilious vomiting
Instructions: BLOOD PRESSURE, Acute Nausea and Vomiting
Prescriptions:
New
ondansetron 4 mg tablet,disintegrating
4 mg PO Q8H PRN (Reason: nausea and vomiting) Qty: 14 0RF
No Action
duloxetine 60 MG capsule,delayed release(DR/EC)
60 mg PO DAILY
amlodipine 10 mg tablet
10 mg PO DAILY
metoprolol succinate 25 mg tablet extended release 24 hr
25 mg PO DAILY
rosuvastatin 5 mg tablet
5 mg PO DAILY
fluticasone propion-salmeterol [Wixela Inhub] 250-50 mcg/dose Blister With Device
1 inh INHALATION R BID
ibuprofen [Advil] 200 mg Tablet
400 mg PO DAILYPRN PRN (Reason: mild pain)
cholecalciferol (vitamin D3) 25 mcg (1,000 unit) Tablet
25 mcg PO DAILY
calcium
1 tab PO DAILY
Referrals:
Jessica Molina PA [Family Provider] -
Interventions
Interventions:
*Risk Screen - Suicide Last Done: 11/14/23 09:29
*General Assessment Last Done: 11/14/23 09:29
*Neglect/Abuse Screening Last Done: 11/14/23 09:29
ED- Fall Risk Assessment Last Done: 11/14/23 10:02
*ED COVID-19 Vaccine History Last Done: 11/14/23 10:02
Discharge Date and Time
Print Language: TUNISIAN
[2023-11-14] MEDS: NSS 1000 IV ×2 (10:24→12:13)
[2023-11-14] MEDS: ZOFRAN 4 MG IV (10:25)
[2023-11-14 10:45] LABS: % Basophils 0.5 % (0-2); % Immature Granulocytes 0.4 % (0-0.5); % Lymphocytes 12.5 % (20.5-51.1); % Monocytes 5.3 % (1.7-9.3); % Neutrophils 81.3 % (42.2-75.2); Absolute Lymphocytes 0.7 10^3/uL (1.2-3.4); Absolute Monocytes 0.3 10^3/uL (0.1-0.6); Absolute Neutrophils 4.6 10^3/uL (1.4-6.5); Hematocrit 47.6 % (37.0-47.0); Hemoglobin 16.6 g/dL (12.0-16.0); Mean Corp Hgb Conc. 34.9 g/dL (33.0-37.0); Mean Corpuscular Hgb 31.6 pg (27.0-31.0); Mean Corpuscular Volume 90.7 fL (81.0-99.0); Mean Platelet Volume 11.4 fL (7.4-10.4); Nucleated Red Blood Cells % 0 %; Platelet Count 184 10^3/uL (130-400); Red Blood Cell Count 5.25 10^6/uL (4.20-5.40); Red Cell Dist. Width 13.1 % (11.5-14.5); White Blood Cell Count 5.7 10^3/uL (4.8-10.8)
[2023-11-14 11:09] LABS: COVID-19 Antigen Negative (Negative)
[2023-11-14 11:39] LABS: ALT (SGPT) 95 U/L (0-35); AST (SGOT) 70 U/L (14-36); Albumin 3.6 g/dl (3.5-5.0); Alkaline Phosphatase 103 U/L (38-126); Blood Urea Nitrogen 12 mg/dl (7-17); Calcium 8.6 mg/dl (8.4-10.2); Carbon Dioxide 27 mmol/L (22-30); Chloride 103 mmol/L (98-107); Estimated Creatinine Clearance 61 ml/min; Glucose 111 mg/dl (70-99); Lipase 21 U/L (23-300); Potassium 3.7 mmol/L (3.5-5.1); Sodium 138 mmol/L (135-145); Total Bilirubin 0.9 mg/dl (0.2-1.3); eGFR > 60.00
[2023-11-14 11:41] LABS: Alcohol None Detected
[2023-11-14 12:02] LABS: Monotest Negative (Negative)
[2023-11-14] MEDS: TORADOL 30 MG IV (12:13)
[2023-11-14 14:23] LABS: Urine Albumin Trace (Neg - Trace); Urine Bilirubin Negative (Negative); Urine Character Clear (Clear); Urine Color Yellow; Urine Glucose Negative (Negative); Urine Ketone 3+ (Negative); Urine Leukocyte 2+ (Negative); Urine Nitrite Negative (Negative); Urine Occult Blood 2+ (Negative); Urine Urobilinogen Negative (Neg - 1+)
[2023-11-14 14:40] LABS: Urine Bacteria Few (Negative)
[2023-11-14] MEDS: TYLENOL 1000 MG PO (16:05)
== END 2023-11-14 17:00 | disposition home or self-care (01) ==
LOC: EMR 09:28
PROVIDERS: EMERGENCY PHYSICIAN Emergency Medicine; FAMILY PHYSICIAN Physician Assistant Medical
DX: R11.2 Nausea with vomiting, unspecified (principal); R25.1 Tremor, unspecified; R50.9 Fever, unspecified; M79.10 Myalgia, unspecified site; M54.9 Dorsalgia, unspecified; Z11.52 Encounter for screening for COVID-19; I10 Essential (primary) hypertension; E78.00 Pure hypercholesterolemia, unspecified; J45.909 Unspecified asthma, uncomplicated; M19.90 Unspecified osteoarthritis, unspecified site; F41.9 Anxiety disorder, unspecified; Z85.820 Personal history of malignant melanoma of skin; Z87.891 Personal history of nicotine dependence; Z88.8 Allergy status to other drugs, medicaments and biological substances; Z91.048 Other nonmedicinal substance allergy status
CPT/HCPCS: 99284; 96374; 96375; 96361 ×2; 80053; 81003; 81015; 82077; 83690; 85025; 86308; 87086; 87502; 87811; 93005

== ENCOUNTER → 2024-07-05 15:16 | Outpatient (REF) | payer MEDICARE, OTHER, SELFPAY | LOC: HWRAD 15:16 | PROVIDERS: ATTENDING PHYSICIAN Student in an Organized Health Care Education/Training Program; FAMILY PHYSICIAN Physician Assistant Medical | DX: M13.0 Polyarthritis, unspecified (principal); M25.50 Pain in unspecified joint; M35.3 Polymyalgia rheumatica; M48.061 Spinal stenosis, lumbar region without neurogenic claudication; M54.16 Radiculopathy, lumbar region; M70.61 Trochanteric bursitis, right hip; R76.8 Other specified abnormal immunological findings in serum | CPT/HCPCS: 72100; 73523 ==

== ENCOUNTER → 2024-11-28 15:07 | Outpatient (REF) | payer MEDICARE, OTHER, SELFPAY | LOC: WDC 15:07 | PROVIDERS: ATTENDING PHYSICIAN Physician Assistant Medical | DX: Z12.31 Encounter for screening mammogram for malignant neoplasm of breast (principal) | CPT/HCPCS: 77063; 77067 ==

== ENCOUNTER 2025-02-08 12:45 | Emergency (ER) | payer MEDICARE, OTHER, SELFPAY ==
[2025-02-08 12:57] VITALS: BP 149/77
[2025-02-08 13:53] LABS: Hematocrit 39.7 % (37.0-47.0); Hemoglobin 13.8 g/dL (12.0-16.0); Mean Corp Hgb Conc. 34.8 g/dL (33.0-37.0); Mean Corpuscular Volume 93.9 fL (81.0-99.0); Nucleated Red Blood Cells % 0 %; Platelet Count 255 10^3/uL (130-400); Red Cell Dist. Width 12.0 % (11.5-14.5)
[2025-02-08 14:03] LABS: ALT (SGPT) 18 U/L (0-35); AST (SGOT) 20 U/L (14-36); Albumin 4.4 g/dl (3.5-5.0); Alkaline Phosphatase 73 U/L (38-126); Blood Urea Nitrogen 13 mg/dl (7-17); Calcium 9.5 mg/dl (8.4-10.2); Carbon Dioxide 25 mmol/L (22-30); Chloride 102 mmol/L (98-107); Glucose 109 mg/dl (70-99); Lipase 30 U/L (23-300); Potassium 4.3 mmol/L (3.5-5.1); Sodium 135 mmol/L (135-145); Total Protein 6.8 g/dl (6.3-8.2); eGFR > 60.00
[2025-02-08 14:05] LABS: Urine Character Clear (Clear)
[2025-02-08 14:24] LABS: Urine Squamous Cell >30 /LPF (Few); Urine Urothelial Cell 0-2 /LPF (FEW)
--- NOTE | 2025-02-08 14:33 | ED.GENMED ---
History of Present Illness
General
Chief Complaint: Abdominal Pain
Source: patient
Exam Limitations: none
Time Seen by Provider: 02/08/25 14:23
Nursing documentation reviewed up to this point in time: agreed with
History of Present Illness
History of Present Illness:
Patient is a 74-year-old female who presents the emergency department for evaluation of abdominal pain. Patient states that she noticed onset of vague lower abdominal pain yesterday afternoon which was significantly worse today. Patient describes
a severe pain across her entire lower abdomen without any radiation around to her back. She has not had any known fever or episodes of vomiting. No diarrhea, constipation, or urinary discomfort.
Of note�patient does report that she has had a few weeks of lack of appetite and nausea. She feels that her abdomen is more distended/bloated than typical.
Patient was seen by her primary care provider earlier this where there was concern for possible appendicitis and patient was referred to the emergency department for further workup.
Patient has no past abdominal surgeries.
Past History
Past History
ED Past Medical History: Asthma, Cancer (Skin), HTN and Hypercholesterolemia
ED Past Surgical History: Orthopedic and Other (melanoma removed)
Social History
Tobacco: Former smoker
Alcohol: Daily
Drug: None
Personal:
Living: with family
Employment: Employed
Family History
Family History: Other
Review of Systems
Review of Systems
Allergies reviewed?: Yes
All Other Systems: ROS reviewed and negative except as documented in HPI and ROS
Phy Exam
Physical Exam
Physical Exam:
Vitals: Hypertension, otherwise vital signs stable. Afebrile
General: Patient is uncomfortable appearing due to pain. Nontoxic
Skin: Warm and dry, no rashes or lesions
Head: Normocephalic, atraumatic
Eyes: Sclera nonicteric.
Throat: Protecting airway
Neck: Normal ROM, no cervical spine tenderness, no meningismus
Cardiac: Regular rate and rhythm, no murmurs.
Pulm: Normal respiratory effort, no wheezes, rales, rhonchi heard on exam
Abdomen: Mild distention. Moderate tenderness in lower abdomen with voluntary guarding. No rebound tenderness. No CVA tenderness
Extremities: No evidence of cyanosis or edema
Neuro: AAOx3. Grossly intact.
Psychiatric: Normal affect.
Course
Orders/Labs/Results
Orders:
Orders
02/08/25 13:16
CMP [Comprehensive Metabolic Panel] Urgent
Complete Blood Count/With Diff Urgent
Lipase Urgent
02/08/25 13:22
Urinalysis Reflex To Culture Urgent
Date Specimen was Collected: 02/08/25
Time Specimen was Collected: 13:00
Urine Microscopic Reflex Cult Urgent
Urine Culture Urgent
DELILAH Source: U
Specimen Description:
Date Specimen was Collected: 02/08/25
Time Specimen was Collected: 13:00
02/08/25 14:32
CT Abd/pelvis W Iv Cont Urgent
Comment:
Reason For Exam: lower abdominal pain
0.9% Sodium Chloride 500 ml [Nss] 500 ml IV BOLUS
Ketorolac [Toradol] 15 mg IV NOW STA
Abnormal Lab Results
02/08/25 02/08/25
13:16 13:22
WBC 15.0 H 10^3/uL
(4.8-10.8)
MCH 32.6 H pg
(27.0-31.0)
MPV 11.0 H fL
(7.4-10.4)
Absolute Neuts (auto) 12.1 H 10^3/uL
(1.4-6.5)
Absolute Monos (auto) 1.3 H 10^3/uL
(0.1-0.6)
Neutrophils % 81.0 H %
(42.2-75.2)
Lymphocytes % 8.7 L %
(20.5-51.1)
Glucose 109 H mg/dl
(70-99)
Urine Ketones 2+ A
(Negative)
Ur Occult Blood Reflex 4+ A
(Negative)
Leukocyte Esterase Rfl 3+ A
(Negative)
Urine RBC 3-6 A /HPF
(0-2)
Urine Bacteria (Reflex) Few A
(Negative)
Urine Albumin (Reflex) 2+ A
(Neg - Trace)
02/08/25 13:16
02/08/25 13:16
Vital Signs
Initial and Last Documented VS:
Initial Vital Signs
Temp Pulse Resp BP Pulse Ox
98.4 F 88 16 149/77 98
02/08/25 12:57 02/08/25 12:57 02/08/25 12:57 02/08/25 12:57 02/08/25 12:57
Last Documented Vital Signs
Temp Pulse Resp BP Pulse Ox
98.4 F 79 16 143/68 97
02/08/25 12:57 02/08/25 17:02 02/08/25 17:02 02/08/25 17:02 02/08/25 17:02
MDM/Problems Addressed
Differential Diagnosis Includes:
Not limited to: Acute appendicitis, diverticulitis, intra-abdominal abscess, bowel perforation, pyelonephritis, cystitis, etc.
MDM/Problems Addressed:
74-year-old female with 2 days of worsening lower abdominal pain associated with nausea and lack of appetite. No fevers or vomiting. No changes in bowel habits or urinary symptoms. Mildly hypertensive but otherwise stable vital signs on arrival.
Physical exam as above.
Differential broad. She does have significant tenderness on exam with concern for intra-abdominal infection. Possible diverticulitis versus appendicitis versus other. Lower suspicion for gallbladder etiology given location of pain. ED plan:
Labs, UA, CT scan abdomen/pelvis. Will treat pain and give IV fluids.
Update: Labs reviewed. Leukocytosis. Chemistry unremarkable. Fever contamination on UA rather than infection. CT pending
Update 5 PM: CT report shows findings of acute sigmoid diverticulitis. Patient afebrile and pain under well control after dose of Toradol here. Given patient afebrile without any findings of complications on imaging�feel stable for discharge home
on oral antibiotics. She is comfortable with this plan. Will send course of Augmentin. Discussed clear liquid diet followed by low fiber and primary care follow-up. Strict return precautions discussed. Comfortable with plan.
Chronic conditions affecting care:
Hypertension
Acute Exacerbation and/or Progression of Chronic Illness:
Acutely hypertensive
*Radiology
Radiology exam reviewed: radiology read reviewed
*Pulse Oximetry
SaO2: 98
Oxygen Mode of Delivery: Room air
Patient hypoxic: no
*EKG
Interpreted by ED Provider?: NA
*Instrument Checker Interpretation
Rate: Instrument Checker- N/A
*Critical Care Note
Total Time (30-74mins, 75-104mins- exclusive of procedures): Not Applicable
ED Attending Note
-
Portions of this chart may have been created with voice recognition software.� Occasional wrong word or��sound alike� substitutions may have occurred due to the inherent limitations of voice recognition software.
Discharge Plan
Departure
Prescriptions:
No Action
duloxetine 60 MG capsule,delayed release(DR/EC)
60 mg PO DAILY
amlodipine 10 mg tablet
10 mg PO DAILY
metoprolol succinate 25 mg tablet extended release 24 hr
25 mg PO DAILY
rosuvastatin 5 mg tablet
5 mg PO DAILY
fluticasone propion-salmeterol [Wixela Inhub] 250-50 mcg/dose Blister With Device
1 inh INHALATION R BID
ibuprofen [Advil] 200 mg Tablet
400 mg PO DAILYPRN PRN (Reason: mild pain)
cholecalciferol (vitamin D3) 25 mcg (1,000 unit) Tablet
25 mcg PO DAILY
calcium
1 tab PO DAILY
ondansetron 4 mg tablet,disintegrating
4 mg PO Q8H PRN (Reason: nausea and vomiting) Qty: 14 0RF
Referrals:
Jessica Molina PA [Family Provider, Family Practice]
Interventions
Interventions:
*Risk Screen - Suicide Last Done: 02/08/25 12:57
*General Assessment Last Done: 02/08/25 14:47
*Neglect/Abuse Screening Last Done: 02/08/25 12:57
*ED- Fall Risk Assessment Last Done: 02/08/25 14:47
*ED COVID-19 Vaccine History Last Done: 02/08/25 14:47
DG-Miilhe-Aovkmrqhyr Assessment Last Done: 02/08/25 15:15
Discharge Date and Time
Print Language: DANISH
--- NOTE | 2025-02-08 14:35 | EDRN ---
Ernesto COLLINS in room w/ pt at this time.
[2025-02-08 14:47] VITALS: BMI 26.6
[2025-02-08] MEDS: NSS 500 IV (14:57)
[2025-02-08] MEDS: TORADOL 15 MG IV (15:03)
[2025-02-08 15:15] VITALS: BP 149/69
--- NOTE | 2025-02-08 15:15 | EDRN ---
Pt states pain across mid to lower abd started last night. Pain now 1-2/10 but w/ movement pain up to 10/10. Pt had a normal BM this am.
--- NOTE | 2025-02-08 16:01 | EDRN ---
Pt states pain on movement remains unchanged at 10/10, though lying still now 1/10.
[2025-02-08 17:02] VITALS: BP 143/68
--- NOTE | 2025-02-08 17:02 | EDRN ---
Pt states pain on movement remains unchanged at 04/07, though lying still now /10
[2025-02-08] MEDS: AUGMENTIN 875 MG/125 MG 1 TABLET PO (17:52)
== END 2025-02-08 17:57 | disposition home or self-care (01) ==
LOC: EMR 12:45
PROVIDERS: Student in an Organized Health Care Education/Training Program; EMERGENCY PHYSICIAN Emergency Medicine; FAMILY PHYSICIAN Physician Assistant Medical
DX: K57.32 Diverticulitis of large intestine without perforation or abscess without bleeding (principal); I10 Essential (primary) hypertension; E78.00 Pure hypercholesterolemia, unspecified; J45.909 Unspecified asthma, uncomplicated; Z87.891 Personal history of nicotine dependence; Z85.820 Personal history of malignant melanoma of skin
CPT/HCPCS: 96374; 96361; 99284; 74177; 80053; 81003; 81015; 83690; 85025; 87086; Q9967

== ENCOUNTER → 2025-02-13 10:52 | Outpatient (REF) | payer MEDICARE, OTHER, SELFPAY | LOC: MRI 3T 10:52 | PROVIDERS: ATTENDING PHYSICIAN Student in an Organized Health Care Education/Training Program; FAMILY PHYSICIAN Physician Assistant Medical | DX: R42 Dizziness and giddiness (principal); R26.89 Other abnormalities of gait and mobility; R25.1 Tremor, unspecified | CPT/HCPCS: 70553; A9575 ==

== ENCOUNTER → 2025-02-20 06:49 | Outpatient (REF) | payer MEDICARE, OTHER, SELFPAY | LOC: PAVMRI 06:49 | PROVIDERS: ATTENDING PHYSICIAN Student in an Organized Health Care Education/Training Program | DX: R29.898 Other symptoms and signs involving the musculoskeletal system (principal) | CPT/HCPCS: 72141 ==